=== PATIENT | male | born 1995 | race Hispanic/Latino ===

== ENCOUNTER → 2021-10-05 | Outpatient (CLI) | payer OTHER ==
[~2021-10-05] MED LIST: ISOVUE-300 61% 50ML VIAL As Ordered ONE; LIDOCAINE 1% MDV 20ML VIAL As Ordered ONE
== END ==
LOC: M RADPRO 08:40
PROVIDERS: ATTEND Plastic Surgery Surgery of the Hand
DX: R20.0 Anesthesia of skin (principal); M25.531 Pain in right wrist
CPT/HCPCS: 25246; 73201; 77002; Q9967